=== PATIENT | female | born 1970 | race Asian ===

== ENCOUNTER 2019-06-13 06:10 | Day surgery (SDC) | payer OTHER ==
[~2019-06-13] VITALS: Ht 175.3 cm; Wt 69.1 kg
[2019-06-13] MEDS ORDERED: BENZOCAINE 20% 50 MCG/SPRAY 57 GM TP ONE (06:11)
[2019-06-13] MEDS ORDERED: ALBUTEROL SULFATE 2.5 MG/0.5 ML NEB SOLUTION NEB ONE (06:11)
[2019-06-13] MEDS ORDERED: LIDOCAINE 2% 30 ML JELLY TP ONE (06:11)
[2019-06-13] MEDS ORDERED: LIDOCAINE 4% 50 ML SOLUTION TP ONE (06:11)
[2019-06-13] MEDS ORDERED: SODIUM CHLORIDE 0.9% 1,000 ML ONE (06:16)
[2019-06-13] MEDS ORDERED: SODIUM CHLORIDE 0.9% 1,000 ML IV ONE (06:30)
[2019-06-13] MEDS ORDERED: PRED10 PO (06:50)
[2019-06-13] MEDS ORDERED: FentaNYL CITRATE-PF 100 MCG/2 ML VIAL ONE (07:54)
[2019-06-13] MEDS ORDERED: MIDAZOLAM HCL 2 MG/2 ML VIAL ONE (07:54)
[2019-06-13] MEDS ORDERED: MethylPREDNISolone SOD SUCC 125 MG/2 ML VIAL IVP ONE (08:30)
[2019-06-13] MEDS ORDERED: MethylPREDNISolone SOD SUCC 125 MG/2 ML VIAL ONE (09:07)
[2019-06-13] MEDS ORDERED: OXYGEN THERAPY IH SCH (20:00)
== END 2019-06-13 11:05 | disposition home or self-care (01) ==
LOC: SURGERY 06:10
PROVIDERS: ATTEND Internal Medicine Critical Care Medicine
DX: R05 Cough (principal); J84.9 Interstitial pulmonary disease, unspecified; J47.9 Bronchiectasis, uncomplicated; J34.89 Other specified disorders of nose and nasal sinuses; J98.8 Other specified respiratory disorders; B37.0 Candidal stomatitis; J38.4 Edema of larynx; R19.09 Other intra-abdominal and pelvic swelling, mass and lump
CPT/HCPCS: 31623; 31624; 71045; 87070; 87101; 87206; 87220; 88184; 88185; J2250; J2930; J3010; J7030; 87015; 87205

== ENCOUNTER 2022-10-11 07:28 | Day surgery (SDC) | payer OTHER ==
[~2022-10-11] VITALS: Ht 175.3 cm; Wt 63.6 kg
[~2022-10-11 07:28] MED LIST: PRED-729 PO; SODIUM CHLORIDE 0.9% 1,000 ML ONE
[2022-10-11] MEDS ORDERED: FentaNYL CITRATE PF 100 MCG/2 ML VIAL ONE (07:48)
[2022-10-11] MEDS ORDERED: MIDAZOLAM HCL 2 MG/2 ML VIAL ONE (07:48)
[2022-10-11] MEDS ORDERED: SODIUM CHLORIDE 0.9% 1,000 ML IV ONE (09:00)
[2022-10-11] MEDS ORDERED: MethylPREDNISolone SOD SUCC 125 MG/2 ML VIAL ONE (09:22)
[2022-10-11] MEDS ORDERED: MethylPREDNISolone SOD SUCC 125 MG/2 ML VIAL IVP ONE ×2 (09:45→10:00)
== END 2022-10-11 11:05 | disposition home or self-care (01) ==
LOC: SURGERY 07:28
PROVIDERS: ATTEND Internal Medicine Critical Care Medicine
DX: J38.4 Edema of larynx (principal); B37.0 Candidal stomatitis; Z79.899 Other long term (current) drug therapy
CPT/HCPCS: 31623; 88112; 87206; 87101; 87220; 87070; 31624; 71045; 87015; J3010; J2250; J2930; J7030